=== PATIENT | female | born 1975 | race Caucasian/White ===

== ENCOUNTER 2019-10-20 15:40 | Outpatient (CLI) | payer OTHER ==
--- NOTE | 2019-10-20 16:22 | MMO ---
Bilateral MAMMO Bilat Screen [facility]. CLINICAL HISTORY: Patient is 44 years old and is seen for screening. The patient has no family history of breast cancer. The patient has no personal history of cancer. VIEWS: The views performed were: bilateral craniocaudal with tomosynthesis and bilateral mediolateral oblique with tomosynthesis. This study has been interpreted with the assistance of computer-aided detection. MAMMOGRAM FINDINGS: There are scattered fibroglandular densities. Finding 1: There are stable benign appearing calcifications seen in both breasts. Finding 2: There is a focal asymmetry measuring 21 millimeters seen in the CC view only seen in the outer region of the right breast. IMPRESSION: FINDING 1: STABLE CALCIFICATIONS IN BOTH BREASTS ARE BENIGN. FINDING 2: FOCAL ASYMMETRY IN THE RIGHT BREAST REQUIRES ADDITIONAL EVALUATION. ADDITIONAL PROJECTIONS (RIGHT MEDIOLATERAL AND RIGHT EXAGGERATED CRANIOCAUDAL SPOT COMPRESSION) ARE RECOMMENDED. AN ULTRASOUND EXAM IS RECOMMENDED IF NEEDED. ADDITIONAL IMAGING. THE RESULTS OF THIS EXAM WERE SENT TO THE PATIENT. ACR BI-RADS Category 0 - Incomplete: Need additional imaging evaluation. [facility] will notify the patient of the need for additional imaging services. MAMMOGRAPHY NOTE: 1. A negative mammogram report should not delay a biopsy if a dominant of clinically suspicious mass is present. 2. Approximately 10% to 15% of breast cancers are not detected by mammography. 3. Adenosis and dense breasts may obscure an underlying neoplasm. Reported by: CAROLIN KIRKLAND MD Electonically Signed: [id number]
== END 2019-10-20 15:41 | disposition home or self-care (01) ==
LOC: BICMAMMO 15:40
PROVIDERS: ATTEND Family Medicine
DX: Z12.31 Encounter for screening mammogram for malignant neoplasm of breast (principal); R92.1 Mammographic calcification found on diagnostic imaging of breast; N64.89 Other specified disorders of breast
CPT/HCPCS: 77063; 77067

== ENCOUNTER 2019-10-24 13:20 | Outpatient (CLI) | payer OTHER ==
--- NOTE | 2019-10-24 13:51 | MMO ---
Right Breast MAMMO Unilat Diag [facility]DI RT+LEW. CLINICAL HISTORY: Patient is 44 years old and is seen for diagnostic exam. The patient has no family history of breast cancer. The patient has no personal history of cancer. VIEWS: The views performed were: right craniocaudal spot compression with tomosynthesis and right mediolateral with tomosynthesis. FILMS COMPARED: The present examination has been compared to prior imaging studies performed at [facility] on 10/20/2019 and 10/24/2019. This study has been interpreted with the assistance of computer-aided detection. MAMMOGRAM FINDINGS: There are scattered fibroglandular densities. Asymmetric density upper outer right breast. No mass or distortion seen on diagnostic exam. No ultrasound abnormality. Recommend 6 month follow up. IMPRESSION: FINDING IN THE RIGHT BREAST IS PROBABLY BENIGN. FOLLOW-UP IN 6 MONTHS IS RECOMMENDED. THE RESULTS OF THIS EXAM WERE SENT TO THE PATIENT. ACR BI-RADS Category 3 - Probably benign finding - short interval follow-up suggested. [facility] will notify the patient of the need for additional imaging services. MAMMOGRAPHY NOTE: 1. A negative mammogram report should not delay a biopsy if a dominant of clinically suspicious mass is present. 2. Approximately 10% to 15% of breast cancers are not detected by mammography. 3. Adenosis and dense breasts may obscure an underlying neoplasm. Reported by: YAIR GONZALEZ MD Electonically Signed: [id number]
--- NOTE | 2019-10-24 13:58 | ULT ---
ULTRASOUND RIGHT BREAST: 10/24/19 INDICATIONS: Ultrasound of the upper outer breast performed to assess asymmetric density on mammography. No sonographic abnormality identified. Heterogeneously dense breast tissue seen without evidence of m ass or distortion. IMPRESSION: No sonographic abnormality. Asymmetric density on mammography without evidence of mass or distortion. Recommend six month follow-up right breast mammogram. BIRADS 3: Probably Benign Finding Initial Short-Interval Follow-Up Suggested Initial short-term follow up (usually 6-month) right breast mammogram. POS: OFF
== END 2019-10-24 13:21 | disposition home or self-care (01) ==
LOC: BICMAMMO 13:20
PROVIDERS: ATTEND Family Medicine
DX: R92.2 Inconclusive mammogram (principal)
CPT/HCPCS: G0279

== ENCOUNTER 2019-11-19 15:39 | Outpatient (CLI) | payer OTHER ==
--- NOTE | 2019-11-19 17:59 | MRI ---
BILATERAL BREAST MRI WITH AND WITHOUT IV CONTRAST AND ADDITIONAL EVALUATION ON INDEPENDENT 3D WORKSTA TION: 11/19/19 HISTORY: Abnormal mammograms of 10/20/19 and 10/24/19 and normal right breast ultrasound the same date. FINDINGS: Correlation is made with recent mammograms and right breast ultrasound. There are tiny cysts in the breasts. A 5-6 mm T2 hyperintense nodule is seen in the anterior aspect o f the left upper outer breast at 1 o'clock position with post contrast enhancement. The signal intens ity curve demonstrates a plateau. This most likely represents a fibroadenoma. No suspicious masses, axillary or internal mammary lymphadenopathy is seen. No nipple retraction or s kin thickening is identified. IMPRESSION: BIRADS 2: Benign Finding(s) Routine annual screening mammography (for women over age 40). This exam was interpreted in consultation with Dr Luis Cutler who concurs. POS: [facility]
== END 2019-11-19 15:40 | disposition home or self-care (01) ==
LOC: BICMRI 15:39
PROVIDERS: ATTEND Family Medicine
DX: N63.0 Unspecified lump in unspecified breast (principal)
CPT/HCPCS: A9577; C8908